=== PATIENT | male | born 1965 | race Caucasian/White ===

== ENCOUNTER 2023-08-10 12:47 | Inpatient (IN) | payer BC, OTHER ==
[2023-08-10 15:16] LABS: BASO % 0.3 % (0-2.0); EOS % 0.2 % (0-4.5); HEMATOCRIT 40.9 % (35.4-49); LYMPH % 21.1 % (8-40); MCH 28.9 pg (25.7-33.7); MCHC 34.2 g/dl (32.0-35.9); MEAN CELL VOLUME 84.4 fl (80-96); MEAN PLT VOLUME 8.1 fl (7.5-11.1); NEUT % 71.4 % (42.8-82.8); PLATELET COUNT 222 10^3/uL (134-434); RBC 4.85 M/mm3 (4.00-5.60); RDW 14.9 % (11.9-15.9); WHITE BLOOD COUNT 10.2 K/mm3 (4.0-10.0)
[2023-08-10 15:40] LABS: CHLORIDE 105 mmol/L (98-107); SODIUM 139 mmol/L (136-145)
[2023-08-10 15:42] LABS: ALBUMIN 3.6 g/dl (3.4-5.0); CALCIUM 9.7 mg/dL (8.5-10.1); CO2 30 mmol/L (21-32)
[2023-08-10 15:43] LABS: BLOOD UREA NITROGEN 20.5 mg/dL (7-18)
[2023-08-10 15:45] LABS: CREATININE 1.2 mg/dL (0.55-1.3); SGOT/AST 26 U/L (15-37); SGPT/ALT 34 U/L (13-61)
[2023-08-10 15:47] LABS: BILIRUBIN,TOTAL 0.3 mg/dL (0.2-1); TOT PROT 6.4 g/dl (6.4-8.2)
[2023-08-10 15:48] LABS: ALK PHOS 64 U/L (45-117)
[2023-08-10 16:02] LABS: ANION GAP 3 mmol/L (4-13); GLUCOSE,RANDOM 39 mg/dL (74-106); POTASSIUM 2.8 mmol/L (3.5-5.1)
[2023-08-10] MEDS ORDERED: DEXTROSE 50%-WATER 25 GM/50 ML DISP.SYRIN ONE (16:15)
[2023-08-10] MEDS ORDERED: POTASSIUM CHLORIDE ORAL LIQUID 20 MEQ/15 ML ONE (16:29)
[2023-08-10] MEDS ORDERED: KCL 10 MEQ IVPB 10 MEQ/100 ML INFUS.BAG IVPB ONE ×2 (16:29→17:57)
[2023-08-10] MEDS ORDERED: ASPIRIN 81 MG CHEWABLE TABLETS ONE (16:34)
[2023-08-10] MEDS: KCL 10 MEQ IVPB 10 MEQ/100 ML INFUS.BAG IVPB SCH (16:45)
[2023-08-10] MEDS: ASPIRIN 81 MG CHEWABLE TABLETS PO ONE (16:45)
[2023-08-10] MEDS: POTASSIUM CHLORIDE ORAL LIQUID 20 MEQ/15 ML PO ONE (16:45)
[2023-08-10] MEDS: DEXTROSE 50%-WATER - 25 GM/50 ML VIAL IVPUSH ONE (17:17)
[2023-08-10 20:10] LABS: MAGNESIUM 1.7 mg/dL (1.8-2.4)
[2023-08-10] MEDS ORDERED: MAGNESIUM SULFATE IN WATER 2 GM/50 ML IVPB IVPB ONE (20:52)
[2023-08-10] MEDS: MAGNESIUM SULFATE IN WATER 2 GM/50 ML IVPB IVPB ONE (21:11)
[2023-08-10] MEDS: D5-1/2NS+20 MEQ KCL - 20 MEQ/1,000 ML INFUS.BAG IV SCH (22:33)
[2023-08-11 05:46] VITALS: BMI 40.1
[2023-08-11 07:23] LABS: BASO % 0.3 % (0-2.0); EOS % 0.3 % (0-4.5); HEMOGLOBIN 13.1 GM/dL (11.7-16.9); LYMPH % 27.2 % (8-40); MCH 28.9 pg (25.7-33.7); MCHC 33.6 g/dl (32.0-35.9); MEAN CELL VOLUME 85.8 fl (80-96); MEAN PLT VOLUME 8.6 fl (7.5-11.1); MONO % 7.1 % (3.8-10.2); NEUT % 65.1 % (42.8-82.8); PLATELET COUNT 192 10^3/uL (134-434); RBC 4.54 M/mm3 (4.00-5.60); RDW 14.2 % (11.9-15.9)
[2023-08-11 07:37] LABS: POTASSIUM 3.1 mmol/L (3.5-5.1)
[2023-08-11 07:45] LABS: BLOOD UREA NITROGEN 18.1 mg/dL (7-18); CALCIUM 9.1 mg/dL (8.5-10.1)
[2023-08-11 07:48] LABS: CREATININE 1.2 mg/dL (0.55-1.3)
[2023-08-11 08:35] LABS: INR 1.15 (0.83-1.09); PROTHROMBIN TIME (PATIENT) 13.3 SEC (9.7-13.0)
[2023-08-11 08:37] LABS: ACTIVATED PTT 34.6 SECONDS (25.2-36.5)
[2023-08-11] MEDS: POTASSIUM CHLORIDE ORAL LIQUID 20 MEQ/15 ML PO ONE ×2 (10:41→21:14)
[2023-08-11] MEDS: LOSARTAN POTASSIUM 50 MG TABLET PO SCH (10:41)
[2023-08-11] MEDS: ENOXAPARIN NA (PORCINE) 40 MG/0.4 ML DISP.SYRIN SQ SCH (10:41)
[2023-08-11] MEDS: LORazepam 0.5 MG TABLET PO PRN (21:13)
[2023-08-11] MEDS: NIFEdipine E.R. 30 MG TABLET PO ONE (21:13)
[2023-08-11] MEDS: ARIPiprazole 2 MG TABLET PO SCH (22:46)
[2023-08-11] MEDS: D5-1/2NS+20 MEQ KCL - 20 MEQ/1,000 ML INFUS.BAG IV SCH (22:46)
[2023-08-12 08:32] LABS: HEMATOCRIT 40.2 % (35.4-49); HEMOGLOBIN 13.4 GM/dL (11.7-16.9); MCH 28.9 pg (25.7-33.7); MCHC 33.5 g/dl (32.0-35.9); MEAN CELL VOLUME 86.4 fl (80-96); MEAN PLT VOLUME 8.7 fl (7.5-11.1); PLATELET COUNT 193 10^3/uL (134-434); RBC 4.65 M/mm3 (4.00-5.60); RDW 14.4 % (11.9-15.9); WHITE BLOOD COUNT 5.6 K/mm3 (4.0-10.0)
[2023-08-12 08:45] LABS: POTASSIUM 3.7 mmol/L (3.5-5.1)
[2023-08-12 08:52] LABS: ALBUMIN 3.3 g/dl (3.4-5.0); CALCIUM 9.2 mg/dL (8.5-10.1)
[2023-08-12 08:53] LABS: BLOOD UREA NITROGEN 16.9 mg/dL (7-18); MAGNESIUM 1.8 mg/dL (1.8-2.4)
[2023-08-12 08:55] LABS: CREATININE 1.1 mg/dL (0.55-1.3)
[2023-08-12 08:57] LABS: BILIRUBIN,TOTAL 0.3 mg/dL (0.2-1); TOT PROT 5.8 g/dl (6.4-8.2)
[2023-08-12] MEDS: LOSARTAN POTASSIUM 50 MG TABLET PO SCH (10:10)
[2023-08-12] MEDS: amLODIPine BESYLATE 2.5 MG TABLET (FP) PO SCH (11:42)
[2023-08-12] MEDS: ACETAMINOPHEN 325 MG TABLET (FP) PO PRN (11:47)
[2023-08-12] MEDS: ARIPiprazole 2 MG TABLET PO SCH (21:30)
[2023-08-13] MEDS: amLODIPine BESYLATE 5 MG TABLET (FP) PO SCH (09:02)
[2023-08-14] MEDS: amLODIPine BESYLATE 10 MG TABLET (FP) PO SCH (08:44)
[2023-08-14] MEDS ORDERED: REGADENOSON 0.4 MG/5 ML PRE-FILLED SYRINGE IVPUSH ONE (10:19)
[2023-08-14] MEDS: REGADENOSON 0.4 MG/5 ML PRE-FILLED SYRINGE IVPUSH ONE (11:15)
[2023-08-14 13:04] LABS: POTASSIUM 3.5 mmol/L (3.5-5.1)
[2023-08-14 13:06] LABS: ALBUMIN 3.4 g/dl (3.4-5.0); BLOOD UREA NITROGEN 15.1 mg/dL (7-18); CALCIUM 9.5 mg/dL (8.5-10.1)
[2023-08-14 13:09] LABS: CREATININE 1.2 mg/dL (0.55-1.3)
[2023-08-14 13:11] LABS: BILIRUBIN,TOTAL 0.4 mg/dL (0.2-1); TOT PROT 6.1 g/dl (6.4-8.2)
[2023-08-15] MEDS: amLODIPine BESYLATE 10 MG TABLET (FP) PO ONE (06:29)
[2023-08-15] MEDS ORDERED: hydrALAZINE HCL 20 MG/ML VIAL IVPUSH PRN (08:52)
[2023-08-15 11:40] LABS: POTASSIUM 3.5 mmol/L (3.5-5.1)
[2023-08-15 11:43] LABS: CALCIUM 9.4 mg/dL (8.5-10.1)
[2023-08-15] MEDS: ASPIRIN 81 MG CHEWABLE TABLETS PO SCH (13:28)
[2023-08-15] MEDS: hydrALAZINE HCL 25 MG TABLET (FP) PO SCH (13:28)
[2023-08-15] MEDS: ATORVASTATIN CA 20 MG TABLET (FP) PO SCH (21:49)
[2023-08-16] MEDS ORDERED: hydrALAZINE HCL 25 MG TABLET (FP) PO SCH (08:35)
[2023-08-16 08:51] LABS: POTASSIUM 3.3 mmol/L (3.5-5.1)
[2023-08-16 08:57] LABS: CALCIUM 8.9 mg/dL (8.5-10.1)
[2023-08-16 08:58] LABS: BLOOD UREA NITROGEN 18.5 mg/dL (7-18)
[2023-08-16 09:02] LABS: BILIRUBIN,TOTAL 0.2 mg/dL (0.2-1); TOT PROT 5.6 g/dl (6.4-8.2)
[2023-08-16] MEDS: SERTRALINE HCL 25 MG TABLET (FP) PO SCH (10:09)
[2023-08-16] MEDS: POTASSIUM CHLORIDE TABS 20 MEQ TABLET.ER (FP) PO ONE (10:09)
[2023-08-16] MEDS: metoPROLOL SUCCINATE 25 MG TAB.SR.24H (FP) PO SCH (10:09)
[2023-08-16] MEDS: POTASSIUM CHLORIDE ORAL LIQUID 20 MEQ/15 ML PO SCH (11:59)
[2023-08-16] MEDS: hydrALAZINE HCL 25 MG TABLET (FP) PO SCH (13:03)
[2023-08-16 17:20] LABS: OPIATES, URI NEGATIVE (NEGATIVE); URINE BARBITURATES NEGATIVE (NEGATIVE); URINE BENZODIAZEPINES NEGATIVE (NEGATIVE)
[2023-08-16 17:21] LABS: COCAINE, UR NEGATIVE (NEGATIVE); METHADONE, UR NEGATIVE (NEGATIVE); PHENCYCLIDINE,URINE NEGATIVE (NEGATIVE); URINE AMPHETAMINES NEGATIVE (NEGATIVE)
[2023-08-16] MEDS: ATORVASTATIN CA 20 MG TABLET (FP) PO SCH (21:37)
[2023-08-17] MEDS: NIFEdipine E.R 60 MG TABLET PO SCH (10:11)
[2023-08-18] MEDS: EMPAGLIFLOZIN (JARDIANCE) 10 MG TABLET PO SCH (10:14)
[2023-08-18] MEDS: POTASSIUM CHLORIDE ORAL LIQUID 20 MEQ/15 ML PO ONE (15:18)
[2023-08-19] MEDS: VALSARTAN 160 MG TABLET PO SCH (09:45)
[2023-08-20 08:14] LABS: POTASSIUM 3.8 mmol/L (3.5-5.1)
[2023-08-20 08:22] LABS: ALBUMIN 3.3 g/dl (3.4-5.0)
[2023-08-20 08:23] LABS: BLOOD UREA NITROGEN 18.4 mg/dL (7-18); CALCIUM 9.3 mg/dL (8.5-10.1)
[2023-08-20 08:26] LABS: CREATININE 1.2 mg/dL (0.55-1.3)
[2023-08-20 08:28] LABS: BILIRUBIN,TOTAL 0.3 mg/dL (0.2-1); TOT PROT 5.8 g/dl (6.4-8.2)
[2023-08-20] MEDS: NIFEdipine E.R 60 MG TABLET PO SCH (10:34)
[2023-08-20] MEDS: CARVEDILOL 6.25 MG TABLET (FP) PO SCH (10:34)
[2023-08-23] MEDS: CARVEDILOL 12.5 MG TABLET (FP) PO SCH (10:17)
[2023-08-24] MEDS: ESCITALOPRAM OXALATE 10 MG TABLET PO SCH (09:22)
[2023-08-24] MEDS: HEPARIN NA (PORCINE) 5,000 UNITS/ML 1ML VIAL SQ SCH (21:18)
[2023-08-25 07:48] LABS: BASO % 0.3 % (0-2.0); EOS % 0.4 % (0-4.5); HEMATOCRIT 35.7 % (35.4-49); HEMOGLOBIN 12.5 GM/dL (11.7-16.9); LYMPH % 27.6 % (8-40); MCH 29.8 pg (25.7-33.7); MEAN CELL VOLUME 85.2 fl (80-96); MEAN PLT VOLUME 8.4 fl (7.5-11.1); MONO % 7.6 % (3.8-10.2); NEUT % 64.1 % (42.8-82.8); PLATELET COUNT 174 10^3/uL (134-434); RDW 14.6 % (11.9-15.9); WHITE BLOOD COUNT 6.8 K/mm3 (4.0-10.0)
[2023-08-25 07:54] LABS: POTASSIUM 3.5 mmol/L (3.5-5.1)
[2023-08-25 07:58] LABS: ALBUMIN 3.1 g/dl (3.4-5.0); CALCIUM 8.8 mg/dL (8.5-10.1)
[2023-08-25 08:00] LABS: BLOOD UREA NITROGEN 17.4 mg/dL (7-18)
[2023-08-25 08:03] LABS: BILIRUBIN,TOTAL 0.6 mg/dL (0.2-1)
[2023-08-25 08:04] LABS: TOT PROT 5.5 g/dl (6.4-8.2)
[2023-08-25] MEDS: POTASSIUM CHLORIDE ORAL LIQUID 20 MEQ/15 ML PO ONE (09:05)
[2023-08-26] MEDS: SENNOSIDES 8.6MG TABLET (FP) PO PRN (21:51)
[2023-08-27] MEDS: POLYETHYLENE GLYCOL (HEALTHYLAX) 3350 17 GM PACKET PO SCH (09:44)
[2023-08-28 06:50] LABS: POTASSIUM 3.4 mmol/L (3.5-5.1)
[2023-08-28 06:52] LABS: CALCIUM 8.6 mg/dL (8.5-10.1)
[2023-08-28 06:53] LABS: BLOOD UREA NITROGEN 18.1 mg/dL (7-18)
[2023-08-28] MEDS: POTASSIUM CHLORIDE TABS 20 MEQ TABLET.ER (FP) PO ONE (09:26)
[2023-08-28] MEDS: POTASSIUM CHLORIDE ORAL LIQUID 20 MEQ/15 ML PO ONE (13:15)
[2023-08-30] MEDS: CARVEDILOL 25 MG TABLET (FP) PO SCH (10:57)
[2023-09-02 15:36] VITALS: BP 156/74; PULSE 75
[2023-09-02 15:51] VITALS: RESP 17; TEMP 97.5
== END 2023-09-02 16:19 | disposition short-term general hospital (02) | DRG 754 ==
LOC: JER 12:47 → JERBED 18:09 → J4S 08-11 05:16
PROVIDERS: ADMIT Internal Medicine; ATTEND Family Medicine
DX: F32.9 Major depressive disorder, single episode, unspecified (principal); I10 Essential (primary) hypertension; E87.6 Hypokalemia; R79.89 Other specified abnormal findings of blood chemistry; R45.851 Suicidal ideations; E11.649 Type 2 diabetes mellitus with hypoglycemia without coma; G47.00 Insomnia, unspecified; I25.10 Atherosclerotic heart disease of native coronary artery without angina pectoris
CPT/HCPCS: 36415; 70450-TC; 71045-TC-FY; 78452-TC; 80048; 80053; 80061; 80307; 82550; 82553; 82962; 83036; 83735; 84100; 84439; 84443; 84484; 85025; 85027; 85610; 85730; 87635; 93005; 93010; 93017; 93306-TC; 99285-25; A9502; J1644; J2785